=== PATIENT | male | born 1965 | race Caucasian/White ===

== ENCOUNTER 2024-08-19 12:48 | Emergency (ER) | payer OTHER, SELFPAY ==
[2024-08-19 12:57] VITALS: BP 135/74
[2024-08-19 13:22] LABS: % Basophils 0.4 % (0-2); % Eosinophils 2.4 % (0-6); % Immature Granulocytes 0.1 % (0-0.5); % Lymphocytes 36.4 % (20.5-51.1); % Monocytes 7.2 % (1.7-9.3); % Neutrophils 53.5 % (42.2-75.2); Absolute Eosinophils 0.2 10^3/uL (0-0.7); Absolute Lymphocytes 2.5 10^3/uL (1.2-3.4); Absolute Monocytes 0.5 10^3/uL (0.1-0.6); Absolute Neutrophils 3.6 10^3/uL (1.4-6.5); Hematocrit 45.7 % (39.0-52.0); Hemoglobin 16.3 g/dL (13.0-18.0); Mean Corp Hgb Conc. 35.7 g/dL (33.0-37.0); Mean Corpuscular Hgb 31.2 pg (27.0-31.0); Mean Corpuscular Volume 87.5 fL (80.0-94.0); Mean Platelet Volume 10.2 fL (7.4-10.4); Nucleated Red Blood Cells % 0 % (-); Platelet Count 223 10^3/uL (130-400); Red Blood Cell Count 5.22 10^6/uL (4.70-6.10); Red Cell Dist. Width 13.2 % (11.5-14.5); White Blood Cell Count 6.8 10^3/uL (4.8-10.8)
[2024-08-19 13:38] LABS: ALT (SGPT) 46 U/L (0-50); AST (SGOT) 57 U/L (17-59); Albumin 4.8 g/dl (3.5-5.0); Alkaline Phosphatase 59 U/L (38-126); Blood Urea Nitrogen 22 mg/dl (9-20); Calcium 10.3 mg/dl (8.4-10.2); Carbon Dioxide 27 mmol/L (22-30); Chloride 103 mmol/L (98-107); Glucose 108 mg/dl (70-99); Sodium 143 mmol/L (135-145); Total Bilirubin 1.3 mg/dl (0.2-1.3); Total Protein 7.4 g/dl (6.3-8.2); eGFR > 60.00
[2024-08-19 13:49] LABS: Troponin I < 0.012 ng/ml
[2024-08-19 13:54] VITALS: BP 117/64
[2024-08-19 14:00] VITALS: BP 119/80
[2024-08-19 15:00] VITALS: BP 116/74
--- NOTE | 2024-08-19 15:07 | ED.GENMED ---
History of Present Illness
General
Chief Complaint: Chest Pain
Source: patient
Time Seen by Provider: 08/19/24 14:56
History of Present Illness
History of Present Illness:
59yoM with a history of coronary artery disease s/p CABG x 10 Years ago and PCI 18 months ago, hypertension, and hyperlipidemia presenting for evaluation of chest pain. Patient reports intermittent central chest tightness over the past 5 to 6 days.
The pain was initially coming and going randomly. He was on a walk around 6 AM this morning when his pain recurred. Pain has been constant since this time. He denies any associated diaphoresis, shortness of breath, nausea, paresthesias,
dizziness, syncope. 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 He reports having a stress test 6 months ago in [place] which was reportedly normal.
Phy Exam
General Physical Exam
General Presentation: well appearing and no apparent distress
General age: appears stated age
General Skin: warm and dry
General Habitus: normal
General Mental: alert
General Hydration: appears well hydrated
ENT Exam
ENT Exam: normocephalic
Cardiovascular Exam
Cardiovascular Exam: regular rate/rhythm, no edema and no murmur
Pulmonary Exam
Pulmonary Exam: lungs clear, no respiratory distress, no rales, no crackles and no wheezing
Neurological Exam
Neurological Exam: alert
[place] Coma Scale
Eye Opening: Spontaneous
Verbal Response: Oriented
Motor Response: Obeys Commands
GCS Total Score: 15
Skin Exam
Skin Exam: normal color and warm/dry
Psychiatric Exam
Psychiatric Exam: normal mood/affect
Scores
Heart Score for Chest Pain Patients
STEMI patient?: No
History: Moderately Suspicious
ECG: Nonspecific Repolarization
Age: >45 - <65 years
Risk Factors: >/= 3 Risk Factors or History of CAD
Troponin: </= Normal Limit
Heart Score for Chest Pain Patients: 5
Heart Score Risk: 20.3% MACE over next 6 weeks
Course
Orders/Labs/Results
Orders:
Orders
08/19/24 12:49
Electrocardiogram (*1) Urgent
Reason for Study: Chest Pain
EKG- Treatment ONCE
08/19/24 13:09
CBC/With Diff [Complete Blood Count/With Diff] Urgent
Comprehensive Metabolic Panel Urgent
Troponin I Urgent
08/19/24 15:07
Cardiac Monitoring- Treatment ONCE
EKG- Treatment ONCE
Interrogate Pacemaker- Treatment ONCE
CR Chest - 2 Views Urgent
Comment:
Reason For Exam: CP
08/19/24 16:09
Troponin I Urgent
08/19/24 16:10
Electrocardiogram (*1) Urgent
Reason for Study: Chest Pain
Abnormal Lab Results
08/19/24
13:09
MCH 31.2 H pg
(27.0-31.0)
BUN 22 H mg/dl
(9-20)
Glucose 108 H mg/dl
(70-99)
Calcium 10.3 H mg/dl
(8.4-10.2)
08/19/24 13:09
08/19/24 13:09
Vital Signs
Initial and Last Documented VS:
Initial Vital Signs
Temp Pulse Resp BP Pulse Ox
97.7 F 60 16 135/74 98
08/19/24 12:57 08/19/24 12:57 08/19/24 12:57 08/19/24 12:57 08/19/24 12:57
Last Documented Vital Signs
Temp Pulse Resp BP Pulse Ox
97.7 F 60 18 126/79 97
08/19/24 12:57 08/19/24 17:45 08/19/24 17:45 08/19/24 17:00 08/19/24 17:45
MDM/Problems Addressed
Differential Diagnosis Includes:
59yoM here with chest tightness. Intermittent x 5-6 days and constant since this morning. No associated SOB, diaphoresis, paresthesias, nausea. Hx of CAD. He is afebrile and hemodynamically stable. He is well-appearing in no acute distress. Exam
is reassuring. Differential diagnosis includes but is not limited to: ACS, stable angina, bronchospasm, pneumonia
Initial ED plan: Cardiac labs and EKG obtained in triage. EKG shows paced rhythm without ischemic changes and troponin is within normal limits. Will check delta troponin/EKG, interrogate pacemaker, and check chest x-ray.
*EKG
Interpreted by ED Provider?: Yes
EKG Intrepretation Date: 08/19/24
Heart Rate: 60
Rate: normal
Rhythm: av sequential
[place]: left axis deviation
Interval: normal interval
Ischemia: non-specific ST changes
*Critical Care Note
Total Time (30-74mins, 75-104mins- exclusive of procedures): Not Applicable
Update Note
Update Note:
Repeat EKG and troponin are unchanged. No pacemaker events within the past week to correlate with symptoms. Chest x-ray is normal. On reassessment, his symptoms have mostly resolved and he currently reports a very mild 1/10 discomfort. No
indication for hospitalization at this time. Advised close follow-up with cardiology and a PCP. He is new to the area and was given contact information for cardiology. Strict ED return precautions discussed. He expressed understanding and is
agreeable to plan. He was discharged in stable condition.
ED Attending Note
-
Portions of this chart may have been created with voice recognition software.� Occasional wrong word or��sound alike� substitutions may have occurred due to the inherent limitations of voice recognition software.
Discharge Plan
Departure
Patient Disposition: Home (Routine Discharge)
Date of Disposition: 08/19/24
Time of Disposition: 17:52
Patient with high blood pressure during this ER visit?: No
Discharge Problem:
Chest pain
Instructions: Chest Pain [facility] Follow Up
Referrals:
NONE,* [Family Provider] -
Justin Bustillo, DO [Active] -
Activity Restrictions/Additional Instructions:
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 Use the [facility] provided to find a primary care provider.
Return to the ER immediately with any new or worsening symptoms.
Interventions
Interventions:
*Risk Screen - Suicide Last Done: 08/19/24 13:55
*General Assessment Last Done: 08/19/24 13:55
*Neglect/Abuse Screening Last Done: 08/19/24 13:55
ED- Fall Risk Assessment Last Done: 08/19/24 17:59
*ED COVID-19 Vaccine History Last Done: 08/19/24 13:55
*Nursing Disposition Last Done: 08/19/24 17:59
ED- Cardiac Assessment Last Done: 08/19/24 13:55
Discharge Date and Time
Discharge Date/Time: 08/19/24 17:59
Print Language: ZAMBIAN
[2024-08-19 16:11] VITALS: BP 122/79
[2024-08-19 16:41] LABS: Troponin I 0.012 ng/ml
[2024-08-19 17:00] VITALS: BP 126/79
== END 2024-08-19 17:59 | disposition home or self-care (01) ==
LOC: EMR 12:48
PROVIDERS: Emergency Medicine; Physician Assistant; EMERGENCY PHYSICIAN Emergency Medicine
DX: R07.89 Other chest pain (principal); I10 Essential (primary) hypertension; E78.00 Pure hypercholesterolemia, unspecified; I25.10 Atherosclerotic heart disease of native coronary artery without angina pectoris; Z95.0 Presence of cardiac pacemaker; Z95.1 Presence of aortocoronary bypass graft; Z95.5 Presence of coronary angioplasty implant and graft
CPT/HCPCS: 99283; 71046; 80053; 84484; 85025; 93005